=== PATIENT | male | born 1980 | race Caucasian/White ===

== ENCOUNTER → 2020-04-16 | Outpatient (CLI) | payer BC ==
[~2020-04-16] MED LIST: AMOX500C2 PO; NAPR550T PO; SULF1TAB38 PO
--- NOTE | 2020-04-16 16:24 | Diagnostic Imaging Report ---
PROCEDURE: MRI left joint lower extremity without contrast. TECHNIQUE: Multiplanar, multisequence non contrast-enhanced MRI of the left lower extremity was accomplished. INDICATION: Left knee pain. COMPARISON: None. FINDINGS: No acute fracture or dislocation is seen in the left knee. Minimal bone marrow edema and subcortical cyst-like change at the intercondylar eminence is likely degenerative. There is a moderate left knee joint effusion. There is mild lateral patellar tilt. The articular cartilage in the patellofemoral compartment demonstrates no full-thickness defects. The articular cartilage in the medial and lateral compartments demonstrates no full-thickness defects. The medial meniscus appears intact. The lateral meniscus demonstrates extensive complex tearing of the posterior horn and body with marked substance loss. There appears to be a bucket-handle component flipped anteriorly (image 13 series 6). The anterior and posterior cruciate ligaments are intact. The medial collateral ligament and the lateral collateral ligamentous complexes are intact. There is moderate lateral subcutaneous edema. The extensor mechanism is intact. The medial and lateral retinacula are intact. IMPRESSION: 1. Complex tear of the lateral meniscus with flipped bucket-handle component. 2. Moderate left knee joint effusion. Dictated by: Dictated on workstation # [id number]
== END ==
LOC: RAD 12:58
PROVIDERS: ATTEND Nurse Practitioner
DX: S83.272A Complex tear of lateral meniscus, current injury, left knee, initial encounter (principal)
CPT/HCPCS: 73721